=== PATIENT | female | born 1935 | race Caucasian/White ===

== ENCOUNTER 2023-04-08 05:32 | Outpatient (CLI) | payer MEDICARE ==
[2023-04-12] MEDS ORDERED: LOPE-134 PO (11:32)
[2023-04-12] MEDS ORDERED: ACET-168 PO (11:32)
[2023-04-12] MEDS ORDERED: [UNRECOGNIZED DRUG - CODE] IJ (11:32)
[2023-04-12] MEDS ORDERED: ALEN70TA85 PO (11:32)
[2023-04-12] MEDS ORDERED: POTA-177 PO (11:32)
[2023-04-12] MEDS ORDERED: ASPI-999 PO (11:32)
[2023-04-12] MEDS ORDERED: MULT-1136 PO (11:32)
[2023-04-12] MEDS ORDERED: FLUT9.9S NS (11:32)
[2023-04-12] MEDS ORDERED: TRIA1TAB5 PO (11:32)
[2023-04-12] MEDS ORDERED: TIZA2CAP9 PO (11:32)
[2023-04-12] MEDS ORDERED: HYDR-3817 PO (11:32)
[2023-04-12] MEDS ORDERED: CALC-794 PO (11:32)
[2023-04-12] MEDS ORDERED: SERT25TA PO (11:32)
[2023-04-12] MEDS ORDERED: CYAN250014 PO (11:32)
[2023-04-15] MEDS ORDERED: SUMA100T2 PO (07:41)
[2023-04-15] MEDS ORDERED: MAGN400O7 PO (07:41)
[2023-04-15] MEDS ORDERED: PROP10DR2 OP (07:41)
== END 2023-04-12 12:33 | disposition home or self-care (01) ==
LOC: PREOP 05:32
PROVIDERS: ATTEND Otolaryngology Otolaryngology/Facial Plastic Surgery
DX: Z01.818 Encounter for other preprocedural examination (principal)